=== PATIENT | female | born 1980 | race African-American/Black ===

== ENCOUNTER 2025-03-06 17:35 | Emergency (ER) | payer SELFPAY ==
[~2025-03-06] VITALS: Ht 167.6 cm; Wt 77.0 kg
[2025-03-06 17:38] VITALS: O2SAT 97
[2025-03-06] MEDS: ONDANSETRON 4MG ODT PO ONE (20:52)
[2025-03-06] MEDS: MAGNESIUM/ALUMINUM HYDROXIDE/SIMETHICONE 30ML UDC PO ONE (20:52)
[2025-03-06] MEDS: FAMOTIDINE 20MG TABLET PO ONE (20:52)
[2025-03-06 21:10] LABS: BASOPHILS % 0.2 % (0.0-2.0); EOSINOPHILS % 0.1 % (0.0-5.0); HEMATOCRIT. 42.5 % (36.0-48.0); HEMOGLOBIN. 13.7 g/dL (12.0-16.0); LYMPHOCYTES % 15.2 % (20.0-50.0); MEAN PLATELET VOLUME 10.0 fl (7.4-10.4); MONOCYTES % 6.9 % (2.0-8.0); NEUTROPHILS % 77.6 % (40.0-76.0); PLATELET 193 x1000/uL (130-400); RED BLOOD CELL COUNT 4.77 mill/uL (4.2-5.4); RED CELL DISTRIBUTION WIDTH 14.6 % (11.6-14.6)
[2025-03-06 21:23] LABS: CREATININE 1.1 mg/dL (0.6-1.0); TROPONIN I HIGH SENSITIVITY < 4 ng/L (3.0-34); UREA NITROGEN BLOOD 6 mg/dL (9-23)
[2025-03-06 21:25] LABS: ASPARTATE AMINOTRANSFERASE 21 IU/L (<34); BILIRUBIN DIRECT 0.2 mg/dL (<=3.0)
[2025-03-06 21:26] LABS: BILIRUBIN TOTAL 0.7 mg/dL (0.1-1.0); PROTEIN TOTAL 7.7 g/dL (6.0-8.3)
[2025-03-06] MEDS ORDERED: P50 MT (21:45)
[2025-03-06] MEDS ORDERED: ALBU18HF2 IH (21:45)
[2025-03-06 22:43] VITALS: BP 138/82; PULSE 79; RESP 18; TEMP 37.2; O2SAT 97
== END 2025-03-06 22:43 | disposition home or self-care (01) ==
LOC: ER 17:35
DX: J20.8 Acute bronchitis due to other specified organisms (principal); I10 Essential (primary) hypertension; I24.89 Other forms of acute ischemic heart disease
CPT/HCPCS: 80076; 80048; 80320; 83690; 85025; 84484; 36415; 71045; 99284; Q0162; G0480